=== PATIENT | female | born 1955 | race Caucasian/White ===

== ENCOUNTER 2022-03-08 10:39 | Emergency (ER) | payer OTHER | END 2022-03-08 15:51 | disposition short-term general hospital (02) | LOC: ED 10:39 | DX: S72.331A Displaced oblique fracture of shaft of right femur, initial encounter for closed fracture (principal); E11.9 Type 2 diabetes mellitus without complications; Z20.822 Contact with and (suspected) exposure to COVID-19; Z79.84 Long term (current) use of oral hypoglycemic drugs; W01.0XXA Fall on same level from slipping, tripping and stumbling without subsequent striking against object, initial encounter | CPT/HCPCS: 36415; 73502; 80053; 85025; 87502; 96374; 96375; 99284-25; C9803; G0480; J1170; J2405; U0003 ==